=== PATIENT | female | born 1990 | race American Indian/Alaskan Native ===

== ENCOUNTER 2017-04-11 17:10 | Observation (INO) | payer MEDICAID ==
--- NOTE | 2017-04-11 17:30 | History and Physical Report ---
History of Present Illness Date of examination: 04/11/17 Date of admission: 04/11/17 17:10 Chief complaint: Patient sent from office for symptomatic anemia, plan for transfusion and consult with hematology. H&H 6.4.2 in office 03/30/17 History of present illness: EDC Calculations by LMP: 07/17/2017 Past History : 5 Term Births: 1 Premature Births: 3 Living Children: 4 Para: 4 Prev : 1 Aborta: 0 # 1 Delivery date: 10/2009 Weeks Gestation: FT Delivery type: Delivery location: [facility] Sex: Male weight: 6lbs Comments: NRFHT'S hyperemesis # 2 Delivery date: 05/2011 Weeks Gestation: 30 Delivery type: # 3 Delivery date: 03/2012 Weeks Gestation: 36 labor: yes Delivery type: weight: 9# # 4 Delivery date: 09/02/2014 Weeks Gestation: 35 labor: yes Delivery type: Hours of labor: 16 Delivery location: [facility] Sex: Male weight: 6-0 Past Medical History: no hx of sti no hx of abd pap "Diabetes, Type 2" - patient states dx at age 12, diet controlled only. ? 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 of genital herpes: no Partner hx. of genital herpes: no Genetic History Congenital Heart Defect: Mom: no Dad: no Lorraine Disease: Mom: no Dad: no Thalassemia Mom: no Dad: no Neural Tube Defect Mom: no Dad: no Down's Syndrome Mom: no Dad: no Fito-Sachs Mom: no Dad: no Sickle Cell Disease/Trait Mom: no Dad: no Hemophilia Mom: no Dad: no Muscular Dystrophy Mom: no Dad: no Cystic Fibrosis Mom: no Dad: no [place] Mom: no Dad: no Mental Retardation Mom: no Dad: no Fragile X Mom: no Dad: no Other Genetic/Chromosomal Disorder Mom: no Dad: no Child w/other defect Mom: no Dad: no Active Medications (reviewed today): FIORICET CAPSULE ([id number] CAPS) PNV () Current Allergies (reviewed today): * SHELLFISH/IODINE (Critical) Past History Past Medical History: other (see HPI) Past Surgical History: other (see HPI) - Obstetrical History Expected Date of Delivery: 07/17/17 Actual Gestation: 26 Week(s) 1 Day(s) : 5 Para: 4 Hx # Term Pregnancies: 2 Number of Pregnancies: 2 Spontaneous Abortions: 0 Induced : 0 Number of Living Children: 4 Medications and Allergies Allergies Allergy/AdvReac Type Severity Reaction Status Date / Time shellfish derived Allergy Itching Verified 09/02/14 09:34 Home Medications Medication Instructions Recorded Confirmed Last Taken Type Ferrous Sulfate [Feosol 325 MG tab] 325 mg PO TID #90 tablet 09/02/14 Unknown Rx Ibuprofen [Motrin 600 MG tab] 600 mg PO Q6H #100 tablet 09/02/14 Unknown Rx Review of Systems All systems: negative Constitutional: fatigue, weakness, other (dizzy) - Physical Exam Breasts: Positive: normal Cardiovascular: Regular rate Lungs: Positive: Clear to auscultation, Normal air movement Abdomen: Positive: normal appearance, soft Vulva: both: normal Vagina: Positive: normal moisture Uterus: Positive: normal size, normal contour Extremities: Positive: normal Deep Tendon Reflex Grade: Normal +2 - Obstetrical Uterine Contraction Monitor Mode: External Uterine Tone Measurement Phase: Resting Results All other labs normal. 03/30/17: Patient: DWAYNE OCAMPO ID: [id number] Note: All result statuses are Final unless otherwise noted. Patient Note: PATIENT NOT FASTING Tests: (1) Hemoglobin (896377) Hemoglobin [LL] 6.4 g/dL 11.1-15.9 *1 Tests: (2) Hematocrit ([id number]) Hematocrit [L] 21.2 % 34.0-46.6 *2 Assessment and Plan 27y/o @ 26 weeks admitted for severe symptomatic anemia. Patient was late to care @ 20 weeks and has had 2 visits in office to date. She was referred to [facility] for hx labor, DM type 2 and insufficient care. She was was seen yesterday by Dr. Jimenez, consult report not yet available for review. OB labs ordered along with A1C d/t DM type 2 (diet controlled per patient - not sure if she ever had this dx as she now says she had hypoglycemia with hyperglycemia only during , never used meter to monitor blood sugars). Patient also reported hx sickle cell, labs from 02/2011 reviewed negative for sickle cell trait or disease. Plan for transfusion 2 units and hematology consult (ordered.) Patient also requesting to be set up w/ zofran pump for persistent nausea and vomiting. will send case management a consult. Dr. Spencer aware of admission. - Patient Problems (1) Second trimester Current Visit: Yes Status: Acute (2) 26 weeks gestation of Current Visit: Yes Status: Acute (3) Anemia affecting in second trimester Current Visit: Yes Status: Acute Plan to address problem: transfusion x2 units Hematology consult in AM (4) Diabetes type 2, uncontrolled Current Visit: Yes Status: Acute Qualifiers: Diabetes mellitus complication status: without complication Diabetes mellitus fpc insulin use: without fpc use Qualified Code(s): E11.65 - Type 2 diabetes mellitus with hyperglycemia Plan to address problem: Patient initially reported in 2014 a dx of DM type 2 in childhood, now states she has hypoglycemia and hyperglycemia only during but states she never checked her blood sugars "I just went to the office every week" Patient does not have meter and has never used a meter to monitor blood sugars. Advised will get A1C today but that patient will need to do 1hGTT in the office. Patient states she will refuse to do 1hGTT because it makes her feel sick. (5) Nausea/vomiting in Current Visit: Yes Status: Acute Plan to address problem: Patient states she has had a zofran pump with all of her previous pregnancies She is requesting a zofran pump Will consult case management.
[2017-04-11] MEDS ORDERED: DEEP SEA NS PRN (17:31)
[2017-04-11] MEDS ORDERED: ALUM-MAG HYDROX-SIMETH 200-200-20MG/5ML PO PRN (17:31)
[2017-04-11] MEDS ORDERED: SODIUM CHLORIDE FLUSH SYRINGE 10 ML IV PRN (17:31)
[2017-04-11] MEDS ORDERED: MILK OF MAGNESIA PO PRN (17:31)
[2017-04-11] MEDS ORDERED: AMBIEN PO PRN (17:31)
[2017-04-11] MEDS ORDERED: BENADRYL PO PRN (17:31)
[2017-04-11] MEDS ORDERED: COLACE PO PRN (17:31)
[2017-04-11] MEDS ORDERED: TYLENOL PO PRN (17:31)
[2017-04-11] MEDS ORDERED: NACL 0.9% 500 ML 500 ML IV NR (17:36)
[2017-04-11] MEDS ORDERED: VISTARIL PO ONE (18:30)
--- NOTE | 2017-04-11 18:39 | Event Note ---
Date: 04/11/17 Pt here for transfusion for symptomatic anemia. Hgb in the office was about 6. Pt stated to provider she has sickle cell but all previous testing has been negative during previous . Will repeat labs at this time. It is also unclear if pt has DM as she has not really done accuchecks. HgA1C being done now. Hematology also consulted at this time as source of anemia is unknown. Plan of care d/w pt via phone prior to her admission. All questions were addressed and answered at this time.
--- NOTE | 2017-04-11 19:26 | Consultation ---
History of Present Illness - Reason for Consult Consult date: 04/11/17 anemia Requesting physician: LLOYD FUENTES - History of Present Illness thank you for this consult, record reviewed. asked to see this patient for reasons of anemia. As per her record, she is in the 2nd trimester. H/H in her doctors office low at 6, patient sent for replacement transfusion. She had claimed possibility of sickle cell dz?,and test with previous have not supported so as per her record.Will do further w/up.will follow you.She may get replacement transfusion when ever indicated. Past History Past Medical History: anemia Social history: no significant social history Medications and Allergies Allergies Allergy/AdvReac Type Severity Reaction Status Date / Time shellfish derived Allergy Itching Verified 09/02/14 09:34 Home Medications Medication Instructions Recorded Confirmed Last Taken Type Ferrous Sulfate [Feosol 325 MG tab] 325 mg PO TID #90 tablet 09/02/14 Unknown Rx Ibuprofen [Motrin 600 MG tab] 600 mg PO Q6H #100 tablet 09/02/14 Unknown Rx Active Meds: Active Medications Acetaminophen (Tylenol) 650 mg PO Q4H PRN PRN Reason: Pain MILD(1-3)/Fever >100.5/BHATT Al Hydrox/Mg Hydrox/Simethicone (Alum-Mag Hydrox-Simeth [id number]/5ml) 30 ml PO Q6H PRN PRN Reason: Indigestion Diphenhydramine HCl (Benadryl) 25 mg PO Q6H PRN PRN Reason: Itching Docusate Sodium (Colace) 100 mg PO Q12H PRN PRN Reason: Constipation Sodium Chloride (Nacl 0.9% 500 Ml) 500 mls @ 0 mls/hr IV ONCE NR PRN Reason: As Directed Stop: 04/11/17 23:59 Magnesium Hydroxide (Milk Of Magnesia) 30 ml PO QHS PRN PRN Reason: Laxative Effect Multivitamins/Iron/Calcium ( Vitamin) 1 each PO QDAY SERAFIN Ondansetron HCl (Zofran) 4 mg IV Q6H PRN PRN Reason: Nausea And Vomiting Sodium Chloride (Deep Sea) 2 spray NS Q4H PRN PRN Reason: Congestion Sodium Chloride (Sodium Chloride Flush Syringe 10 Ml) 10 ml IV PRN PRN PRN Reason: LINE FLUSH Zolpidem Tartrate (Ambien) 10 mg PO ONCE PRN PRN Reason: Sleep Review of Systems Breasts: deferred Exam - Constitutional Vitals: Temp Pulse Resp BP Pulse Ox 90 105/74 04/11/17 19:17 04/11/17 19:17 General appearance: Present: mild distress, well-nourished - EENT Eyes: Present: PERRL ENT: hearing intact, clear oral mucosa - Neck Neck: Present: supple, normal ROM - Respiratory Respiratory effort: normal Respiratory: bilateral: CTA - Cardiovascular Heart Sounds: Present: S1 & S2. Absent: rub, click - Extremities Extremities: pulses symmetrical, No edema Peripheral Pulses: within normal limits - Abdominal General gastrointestinal: Present: soft, non-tender, non-distended, normal bowel sounds Female genitourinary: Present: deferred - Rectal Rectal Exam: deferred - Integumentary Integumentary: Present: clear, warm, dry - Musculoskeletal Musculoskeletal: gait normal, strength equal bilaterally - Psychiatric Psychiatric: appropriate mood/affect, intact judgment & insight - Neurologic Neurologic: CNII-XII intact, moves all extremities Assessment and Plan - Patient Problems (1) 26 weeks gestation of Current Visit: Yes Status: Acute Plan to address problem: follow OB team (2) Anemia affecting in second trimester Current Visit: Yes Status: Acute Plan to address problem: See orders for w/up.
[2017-04-11 21:10] LABS: Hematocrit 22.9 % (30.3-42.9); Hemoglobin 7.1 gm/dl (10.1-14.3); Mean Corpuscular HGB Conc 31 % (30-34); Platelet Count 236 K/mm3 (140-440)
[2017-04-11 21:21] LABS: Mean Corpuscular Hemoglobin 20 pg (28-32); Mean Corpuscular Volume 64 fl (79-97); Red Cell Distribution Width 26.2 % (13.2-15.2)
[2017-04-11 21:31] LABS: Iron 18 ug/dL (37-170)
[2017-04-11 21:32] LABS: Total Iron Binding Capacity 423 mcg/dL (250-450)
[2017-04-11 21:37] LABS: Bilirubin,Direct < 0.2 mg/dL (0-0.2)
[2017-04-11 21:40] LABS: Rubella IgG Antibody Immune (Immune)
[2017-04-11 21:41] LABS: Hepatitis C Virus Antibody Non-Reactive (NonReactive)
[2017-04-11 22:08] LABS: Basophils % (Manual) 0 % (0.0-1.8); Eosinophils % (Manual) 0 % (0.0-4.3); Total Cells Counted 100
[2017-04-11 22:10] LABS: Anisocytosis 3+; Dimorphic RBC Yes
[2017-04-11 22:12] LABS: Ovalocytes 1+
[2017-04-11 22:13] LABS: Hypochromasia 2+; Platelet Estimate Consistent w Auto; Poikilocytosis 2+; Tear Drop Cells 1+
[2017-04-11 22:14] LABS: Target Cells Few
[2017-04-11 23:11] LABS: Amphetamine Screen,Urine PRESUMPTIVE NEGATIVE; Benzodiazepines Screen,Urine PRESUMPTIVE NEGATIVE; Cannabinoid Screen,Urine PRESUMPTIVE NEGATIVE; Cocaine Screen,Urine PRESUMPTIVE NEGATIVE; Methadone Screen,Urine PRESUMPTIVE NEGATIVE; Opiate Screen,Urine PRESUMPTIVE NEGATIVE
[2017-04-12] MEDS ORDERED: FIORICET PO PRN (00:38)
[2017-04-12] MEDS: ZOFRAN IV PRN ×2 (00:47→08:33)
[2017-04-12] MEDS ORDERED: VISTARIL PO ONE (02:00)
[2017-04-12] MEDS ORDERED: LACTATED RINGERS 1,000 ML IV SCH (05:00)
[2017-04-12 06:09] LABS: Hematocrit 24.7 % (30.3-42.9); Hemoglobin 7.4 gm/dl (10.1-14.3); Mean Corpuscular HGB Conc 30 % (30-34); Platelet Count 192 K/mm3 (140-440); Red Blood Count 3.63 M/mm3 (3.65-5.03)
[2017-04-12 06:34] LABS: Mean Corpuscular Hemoglobin 21 pg (28-32); Mean Corpuscular Volume 68 fl (79-97)
[2017-04-12] MEDS ORDERED: VISTARIL PO PRN (07:02)
--- NOTE | 2017-04-12 07:46 | Progress Note ---
Assessment and Plan Very confusing history, poor hisotorian. Will proceed with 1hgtt then allow home - Patient Problems (1) 26 weeks gestation of Current Visit: Yes Status: Acute (2) Anemia affecting in second trimester Current Visit: Yes Status: Acute Subjective - Subjective Date of service: 04/12/17 Principal diagnosis: IUP@26 2/7weeks, severe anemia Interval history: Resting in bed no complaints, +fm, no bleeding Upon further questioning she states she was diagnosed with sickle cell disease and lupus by Dr. Canela 2016, she was diagnosed with hypoglycemia not diabetes when she was 12yo. Patient reports: movement normal, no new complaints, no loss of fluid, no vaginal bleeding, no contractions Objective - Vital Signs Vital Signs: Vital Signs - 12hr 04/11/17 04/11/17 04/11/17 21:08 22:08 23:15 Temperature 97.5 F L Pulse Rate Respiratory 16 16 18 Rate Blood Pressure O2 Sat by Pulse Oximetry 04/11/17 04/11/17 04/11/17 23:16 23:29 23:34 Temperature 97.5 F L Pulse Rate 93 H 88 82 Respiratory 18 Rate Blood Pressure 119/67 O2 Sat by Pulse 98 99 Oximetry 04/11/17 04/11/17 04/11/17 23:36 23:39 23:41 Temperature 98.1 F Pulse Rate 89 89 93 H Respiratory 18 Rate Blood Pressure 105/72 105/72 O2 Sat by Pulse 98 98 Oximetry 04/11/17 04/11/17 04/11/17 23:44 23:49 23:54 Temperature Pulse Rate 97 H 97 H 100 H Respiratory Rate Blood Pressure O2 Sat by Pulse 98 97 98 Oximetry 04/11/17 04/12/17 04/12/17 23:59 00:04 00:06 Temperature 97.3 F L Pulse Rate 102 H 96 H 91 H Respiratory 18 Rate Blood Pressure 108/63 O2 Sat by Pulse 98 96 99 Oximetry 04/12/17 04/12/17 04/12/17 00:12 00:17 00:22 Temperature Pulse Rate 86 88 95 H Respiratory Rate Blood Pressure 108/63 O2 Sat by Pulse 99 99 99 Oximetry 04/12/17 04/12/17 04/12/17 00:27 00:32 00:37 Temperature Pulse Rate 97 H 90 88 Respiratory Rate Blood Pressure O2 Sat by Pulse 99 99 99 Oximetry 04/12/17 04/12/17 04/12/17 00:40 00:42 00:44 Temperature 97.4 F L Pulse Rate 97 H 104 H 97 H Respiratory 18 Rate Blood Pressure 108/65 108/65 O2 Sat by Pulse 99 Oximetry 04/12/17 04/12/17 04/12/17 00:47 00:52 00:57 Temperature Pulse Rate 99 H 90 99 H Respiratory Rate Blood Pressure O2 Sat by Pulse 100 99 99 Oximetry 04/12/17 04/12/17 04/12/17 00:59 01:00 01:02 Temperature 97.3 F L Pulse Rate 90 84 90 Respiratory 18 Rate Blood Pressure 97/54 97/54 O2 Sat by Pulse 99 Oximetry 04/12/17 04/12/17 04/12/17 01:07 01:09 01:12 Temperature Pulse Rate 94 H 92 H Respiratory 18 Rate Blood Pressure O2 Sat by Pulse 100 99 Oximetry 04/12/17 04/12/17 04/12/17 01:15 01:17 01:19 Temperature 97.1 F L Pulse Rate 87 84 87 Respiratory 18 Rate Blood Pressure 110/66 110/66 O2 Sat by Pulse 99 99 Oximetry 04/12/17 04/12/17 04/12/17 01:22 01:27 01:32 Temperature Pulse Rate 85 84 87 Respiratory Rate Blood Pressure O2 Sat by Pulse 99 99 99 Oximetry 04/12/17 04/12/17 04/12/17 01:37 01:42 01:45 Temperature 97.4 F L Pulse Rate 96 H 87 86 Respiratory 16 Rate Blood Pressure 103/58 O2 Sat by Pulse 99 99 Oximetry 04/12/17 04/12/17 04/12/17 01:50 01:55 02:00 Temperature Pulse Rate 86 95 H 86 Respiratory Rate Blood Pressure 103/58 O2 Sat by Pulse 99 100 99 Oximetry 04/12/17 04/12/17 04/12/17 02:05 02:10 02:15 Temperature 97.9 F Pulse Rate 88 90 86 Respiratory 16 Rate Blood Pressure 106/68 O2 Sat by Pulse 100 99 100 Oximetry 04/12/17 04/12/17 04/12/17 02:19 02:20 02:25 Temperature Pulse Rate 86 89 86 Respiratory Rate Blood Pressure 106/68 O2 Sat by Pulse 100 99 Oximetry 0104/12/17 04/12/17 02:30 02:35 02:40 Temperature Pulse Rate 90 87 87 Respiratory Rate Blood Pressure O2 Sat by Pulse 99 99 98 Oximetry 04/12/17 04/12/17 04/12/17 02:45 02:49 02:50 Temperature 97.1 F L Pulse Rate 88 88 86 Respiratory 16 Rate Blood Pressure 95/64 95/64 O2 Sat by Pulse 99 98 Oximetry 04/12/17 04/12/17 04/12/17 02:55 03:00 03:05 Temperature Pulse Rate 86 86 90 Respiratory Rate Blood Pressure O2 Sat by Pulse 98 99 99 Oximetry 04/12/17 04/12/17 04/12/17 03:10 03:15 03:20 Temperature 97.0 F L Pulse Rate 91 H 85 85 Respiratory 16 Rate Blood Pressure 104/51 104/51 O2 Sat by Pulse 99 98 98 Oximetry 04/12/17 04/12/17 04/12/17 03:25 03:30 03:45 Temperature 97.6 F Pulse Rate 86 84 82 Respiratory 18 Rate Blood Pressure 128/71 O2 Sat by Pulse 100 98 Oximetry 04/12/17 04/12/17 04/12/17 03:49 04:15 04:19 Temperature 97.2 F L Pulse Rate 82 88 88 Respiratory 18 Rate Blood Pressure 128/71 94/57 94/57 O2 Sat by Pulse Oximetry 04/12/17 04/12/17 04:23 04:27 Temperature 97.4 F L Pulse Rate 88 88 Respiratory 16 Rate Blood Pressure 119/78 119/78 O2 Sat by Pulse Oximetry - Exam Lungs: Normal air movement FHR: category 1 (NST, am NST (P)) - Labs Labs: Abnormal Labs 04/11/17 04/11/17 04/11/17 20:20 20:20 20:20 RBC 3.60 L Hgb 7.1 L Hct 22.9 L MCV 64 L MCH 20 L RDW 26.2 H Seg Neuts % (Manual) 74.0 H Percent Retic 2.96 H Iron Ferritin Crossmatch See Detail 04/11/17 04/11/17 04/12/17 20:20 20:20 05:44 RBC 3.63 L Hgb 7.4 L Hct 24.7 L MCV 68 L MCH 21 L RDW 29.0 H Seg Neuts % (Manual) Percent Retic Iron 18 L Ferritin 6.1 L Crossmatch Laboratory Results - last 24 hr 04/11/17 04/11/17 04/11/17 20:20 20:20 20:20 WBC 9.4 RBC 3.60 L Hgb 7.1 L Hct 22.9 L MCV 64 L MCH 20 L MCHC 31 RDW 26.2 H Plt Count 236 Add Manual Diff Complete Total Counted 100 Seg Neuts % (Manual) 74.0 H Band Neutrophils % 0 Lymphocytes % (Manual) 24.0 Reactive Lymphs % (Man) 0 Monocytes % (Manual) 2.0 Eosinophils % (Manual) 0 Basophils % (Manual) 0 Metamyelocytes % 0 Myelocytes % 0 Promyelocytes % 0 Blast Cells % 0 Nucleated RBC % Not Reportable Seg Neutrophils # Man 7.0 Band Neutrophils # 0.0 Lymphocytes # (Manual) 2.3 Abs React Lymphs (Man) 0.0 Monocytes # (Manual) 0.2 Eosinophils # (Manual) 0.0 Basophils # (Manual) 0.0 Metamyelocytes # 0.0 Myelocytes # 0.0 Promyelocytes # 0.0 Blast Cells # 0.0 WBC Morphology Not Reportable Hypersegmented Neuts Not Reportable Hyposegmented Neuts Not Reportable Hypogranular Neuts Not Reportable Smudge Cells Not Reportable Toxic Granulation Not Reportable Toxic Vacuolation Not Reportable Dohle Bodies Not Reportable Pelger-Huet Anomaly Not Reportable Gary Rods Not Reportable Platelet Estimate Consistent w auto Clumped Platelets Not Reportable Plt Clumps, EDTA Not Reportable Large Platelets Not Reportable Giant Platelets Not Reportable Platelet Satelliting Not Reportable Plt Morphology Comment Not Reportable RBC Morphology Not Reportable Dimorphic RBCs Yes Polychromasia Few Hypochromasia 2+ Poikilocytosis 2+ Anisocytosis 3+ Microcytosis 3+ Macrocytosis Not Reportable Spherocytes Not Reportable Pappenheimer Bodies Not Reportable Sickle Cells Not Reportable Target Cells Few Tear Drop Cells 1+ Ovalocytes 1+ Helmet Cells Not Reportable [place] Bodies Not Reportable [place] Rings Not Reportable Michele Cells Not Reportable Bite Cells Not Reportable Crenated Cell Not Reportable Elliptocytes Not Reportable Acanthocytes (Spur) Not Reportable Rouleaux Not Reportable Hemoglobin C Crystals Not Reportable Schistocytes Not Reportable Malaria parasites Not Reportable Percent Retic Sickle Cell Screen Negative Bj Bodies Not Reportable Hem Pathologist Commnt No Hemoglobin A1c Glucose Tolerance Iron TIBC Ferritin Total Bilirubin Direct Bilirubin Indirect Bilirubin Lactate Dehydrogenase Urine Opiates Screen Urine Methadone Screen Ur Barbiturates Screen Ur Phencyclidine Scrn Ur Amphetamines Screen U Benzodiazepines Scrn Urine Cocaine Screen U Marijuana (THC) Screen Drugs of Abuse Note Hep Bs Antigen Hepatitis C Antibody Non-reactive HIV 1&2 Antibody Rapid HIV P24 Antigen Rubella IgG Antibody Immune Blood Type O POSITIVE Antibody Screen Negative Direct Antiglob Test SERENA, Poly Interpret Crossmatch See Detail 04/11/17 04/11/17 04/11/17 20:20 20:20 20:20 WBC RBC Hgb Hct MCV MCH MCHC RDW Plt Count Add Manual Diff Total Counted Seg Neuts % (Manual) Band Neutrophils % Lymphocytes % (Manual) Reactive Lymphs % (Man) Monocytes % (Manual) Eosinophils % (Manual) Basophils % (Manual) Metamyelocytes % Myelocytes % Promyelocytes % Blast Cells % Nucleated RBC % Seg Neutrophils # Man Band Neutrophils # Lymphocytes # (Manual) Abs React Lymphs (Man) Monocytes # (Manual) Eosinophils # (Manual) Basophils # (Manual) Metamyelocytes # Myelocytes # Promyelocytes # Blast Cells # WBC Morphology Hypersegmented Neuts Hyposegmented Neuts Hypogranular Neuts Smudge Cells Toxic Granulation Toxic Vacuolation Dohle Bodies Pelger-Huet Anomaly Gary Rods Platelet Estimate Clumped Platelets Plt Clumps, EDTA Large Platelets Giant Platelets Platelet Satelliting Plt Morphology Comment RBC Morphology Dimorphic RBCs Polychromasia Hypochromasia Poikilocytosis Anisocytosis Microcytosis Macrocytosis Spherocytes Pappenheimer Bodies Sickle Cells Target Cells Tear Drop Cells Ovalocytes Helmet Cells [place] Bodies [place] Rings [place] Cells Bite Cells Crenated Cell Elliptocytes Acanthocytes (Spur) Rouleaux Hemoglobin C Crystals Schistocytes Malaria parasites Percent Retic 2.96 H Sickle Cell Screen Bj Bodies Hem Pathologist Commnt Hemoglobin A1c 5.6 Glucose Tolerance Iron TIBC Ferritin Total Bilirubin Direct Bilirubin Indirect Bilirubin Lactate Dehydrogenase Urine Opiates Screen Urine Methadone Screen Ur Barbiturates Screen Ur Phencyclidine Scrn Ur Amphetamines Screen U Benzodiazepines Scrn Urine Cocaine Screen U Marijuana (THC) Screen Drugs of Abuse Note Hep Bs Antigen Non-reactive Hepatitis C Antibody HIV 1&2 Antibody Rapid Non react HIV P24 Antigen Non react Rubella IgG Antibody Blood Type Antibody Screen Direct Antiglob Test SERENA, Poly Interpret Crossmatch 04/11/17 04/11/17 04/11/17 20:20 20:20 20:20 WBC RBC Hgb Hct MCV MCH MCHC RDW Plt Count Add Manual Diff Total Counted Seg Neuts % (Manual) Band Neutrophils % Lymphocytes % (Manual) Reactive Lymphs % (Man) Monocytes % (Manual) Eosinophils % (Manual) Basophils % (Manual) Metamyelocytes % Myelocytes % Promyelocytes % Blast Cells % Nucleated RBC % Seg Neutrophils # Man Band Neutrophils # Lymphocytes # (Manual) Abs React Lymphs (Man) Monocytes # (Manual) Eosinophils # (Manual) Basophils # (Manual) Metamyelocytes # Myelocytes # Promyelocytes # Blast Cells # WBC Morphology Hypersegmented Neuts Hyposegmented Neuts Hypogranular Neuts Smudge Cells Toxic Granulation Toxic Vacuolation Dohle Bodies Pelger-Huet Anomaly Gary Rods Platelet Estimate Clumped Platelets Plt Clumps, EDTA Large Platelets Giant Platelets Platelet Satelliting Plt Morphology Comment RBC Morphology Dimorphic RBCs Polychromasia Hypochromasia Poikilocytosis Anisocytosis Microcytosis Macrocytosis Spherocytes Pappenheimer Bodies Sickle Cells Target Cells Tear Drop Cells Ovalocytes Helmet Cells [place] Bodies [place] Rings Michele Cells Bite Cells Crenated Cell Elliptocytes Acanthocytes (Spur) Rouleaux Hemoglobin C Crystals Schistocytes Malaria parasites Percent Retic Sickle Cell Screen Bj Bodies Hem Pathologist Commnt Hemoglobin A1c Glucose Tolerance Iron 18 L TIBC 423 Ferritin 6.1 L Total Bilirubin 0.20 Direct Bilirubin < 0.2 Indirect Bilirubin 0.0 Lactate Dehydrogenase Urine Opiates Screen Urine Methadone Screen Ur Barbiturates Screen Ur Phencyclidine Scrn Ur Amphetamines Screen U Benzodiazepines Scrn Urine Cocaine Screen U Marijuana (THC) Screen Drugs of Abuse Note Hep Bs Antigen Hepatitis C Antibody HIV 1&2 Antibody Rapid HIV P24 Antigen Rubella IgG Antibody Blood Type Antibody Screen Direct Antiglob Test SERENA, Poly Interpret Crossmatch 04/11/17 04/11/17 04/11/17 20:20 20:20 21:55 WBC RBC Hgb Hct MCV MCH MCHC RDW Plt Count Add Manual Diff Total Counted Seg Neuts % (Manual) Band Neutrophils % Lymphocytes % (Manual) Reactive Lymphs % (Man) Monocytes % (Manual) Eosinophils % (Manual) Basophils % (Manual) Metamyelocytes % Myelocytes % Promyelocytes % Blast Cells % Nucleated RBC % Seg Neutrophils # Man Band Neutrophils # Lymphocytes # (Manual) Abs React Lymphs (Man) Monocytes # (Manual) Eosinophils # (Manual) Basophils # (Manual) Metamyelocytes # Myelocytes # Promyelocytes # Blast Cells # WBC Morphology Hypersegmented Neuts Hyposegmented Neuts Hypogranular Neuts Smudge Cells Toxic Granulation Toxic Vacuolation Dohle Bodies Pelger-Huet Anomaly Gary Rods Platelet Estimate Clumped Platelets Plt Clumps, EDTA Large Platelets Giant Platelets Platelet Satelliting Plt Morphology Comment RBC Morphology Dimorphic RBCs Polychromasia Hypochromasia Poikilocytosis Anisocytosis Microcytosis Macrocytosis Spherocytes Pappenheimer Bodies Sickle Cells Target Cells Tear Drop Cells Ovalocytes Helmet Cells [place] Bodies [place] Rings [place] Cells Bite Cells Crenated Cell Elliptocytes Acanthocytes (Spur) Rouleaux Hemoglobin C Crystals Schistocytes Malaria parasites Percent Retic Sickle Cell Screen Bj Bodies Hem Pathologist Commnt Hemoglobin A1c Glucose Tolerance Iron TIBC Ferritin Total Bilirubin Direct Bilirubin Indirect Bilirubin Lactate Dehydrogenase 142 Urine Opiates Screen Presumptive negative Urine Methadone Screen Presumptive negative Ur Barbiturates Screen Presumptive negative Ur Phencyclidine Scrn Presumptive negative Ur Amphetamines Screen Presumptive negative U Benzodiazepines Scrn Presumptive negative Urine Cocaine Screen Presumptive negative U Marijuana (THC) Screen Presumptive negative Drugs of Abuse Note Disclamer Hep Bs Antigen Hepatitis C Antibody HIV 1&2 Antibody Rapid HIV P24 Antigen Rubella IgG Antibody Blood Type Antibody Screen Direct Antiglob Test Negative SERENA, Poly Interpret Negative Crossmatch 04/12/17 04/12/17 05:44 06:30 WBC 9.3 RBC 3.63 L Hgb 7.4 L Hct 24.7 L MCV 68 L MCH 21 L MCHC 30 RDW 29.0 H Plt Count 192 Add Manual Diff Total Counted Seg Neuts % (Manual) Band Neutrophils % Lymphocytes % (Manual) Reactive Lymphs % (Man) Monocytes % (Manual) Eosinophils % (Manual) Basophils % (Manual) Metamyelocytes % Myelocytes % Promyelocytes % Blast Cells % Nucleated RBC % Seg Neutrophils # Man Band Neutrophils # Lymphocytes # (Manual) Abs React Lymphs (Man) Monocytes # (Manual) Eosinophils # (Manual) Basophils # (Manual) Metamyelocytes # Myelocytes # Promyelocytes # Blast Cells # WBC Morphology Hypersegmented Neuts Hyposegmented Neuts Hypogranular Neuts Smudge Cells Toxic Granulation Toxic Vacuolation Dohle Bodies Pelger-Huet Anomaly Gary Rods Platelet Estimate Clumped Platelets Plt Clumps, EDTA Large Platelets Giant Platelets Platelet Satelliting Plt Morphology Comment RBC Morphology Dimorphic RBCs Polychromasia Hypochromasia Poikilocytosis Anisocytosis Microcytosis Macrocytosis Spherocytes Pappenheimer Bodies Sickle Cells Target Cells Tear Drop Cells Ovalocytes Helmet Cells [place] Bodies [place] Rings [place] Cells Bite Cells Crenated Cell Elliptocytes Acanthocytes (Spur) Rouleaux Hemoglobin C Crystals Schistocytes Malaria parasites Percent Retic Sickle Cell Screen Bj Bodies Hem Pathologist Commnt Hemoglobin A1c Glucose Tolerance Iron TIBC Ferritin Total Bilirubin Direct Bilirubin Indirect Bilirubin Lactate Dehydrogenase Urine Opiates Screen Urine Methadone Screen Ur Barbiturates Screen Ur Phencyclidine Scrn Ur Amphetamines Screen U Benzodiazepines Scrn Urine Cocaine Screen U Marijuana (THC) Screen Drugs of Abuse Note Hep Bs Antigen Hepatitis C Antibody HIV 1&2 Antibody Rapid HIV P24 Antigen Rubella IgG Antibody Blood Type Antibody Screen Direct Antiglob Test SERENA, Poly Interpret Crossmatch
[2017-04-12 07:58] VITALS: BP 105/70
[2017-04-12] MEDS ORDERED: PRENATAL VITAMIN PO SCH (10:00)
[2017-04-12 11:07] LABS: Basophils % (Manual) 0 % (0.0-1.8); Eosinophils % (Manual) 0 % (0.0-4.3); Total Cells Counted 100
[2017-04-12 11:08] LABS: Anisocytosis 3+; Hypochromasia 2+
[2017-04-12 11:09] LABS: Poikilocytosis Few
[2017-04-19 13:14] LABS: ANA Screen, IFA Negative (Negative)
== END 2017-04-12 13:00 | disposition home or self-care (01) ==
LOC: LD 17:10
PROVIDERS: ADMIT Obstetrics & Gynecology; ATTEND Obstetrics & Gynecology
DX: O99.012 Anemia complicating pregnancy, second trimester (principal); O21.2 Late vomiting of pregnancy; O24.112 Pre-existing type 2 diabetes mellitus, in pregnancy, second trimester; Z3A.26 26 weeks gestation of pregnancy
CPT/HCPCS: 36415; 36430; 80307; 82010; 82232; 82248; 82728; 82951; 83036; 83550; 83615; 85007; 85025; 85045; 85613; 85660; 86038; 86592; 86706; 86762; 86803; 86850; 86880; 86900; 86901; 86920; 87086; 87806; 96361; 96374; 96376; G0378; G0379; J2405; J7040; J7120; P9016; Q0177

== ENCOUNTER 2017-04-17 17:04 | Outpatient (CLI) | payer MEDICAID ==
[2017-04-17] MEDS ORDERED: LACTATED RINGERS 500 ML IV ONE (17:26)
[2017-04-17 20:06] VITALS: BP 107/76
== END 2017-04-17 20:25 | disposition home or self-care (01) ==
LOC: TRG 17:04
PROVIDERS: ATTEND Obstetrics & Gynecology
DX: Z34.93 Encounter for supervision of normal pregnancy, unspecified, third trimester (principal); Z3A.27 27 weeks gestation of pregnancy
CPT/HCPCS: 59025; 96360; J7120

== ENCOUNTER 2017-04-30 21:37 | Inpatient (IN) | payer MEDICAID ==
[2017-04-30] MEDS ORDERED: LACTATED RINGERS 1,000 ML ONE (21:44)
[2017-04-30] MEDS ORDERED: LACTATED RINGERS 500 ML IV ONE (21:49)
[2017-04-30] MEDS ORDERED: MAGNESIUM SULFATE 4GM/100ML 4 GM/100 ML BAG IV ONE (21:59)
[2017-04-30] MEDS ORDERED: REGLAN IV ONE (22:01)
[2017-04-30] MEDS ORDERED: BICITRA PO ONE (22:01)
[2017-04-30] MEDS ORDERED: PEPCID IV ONE (22:03)
[2017-04-30] MEDS ORDERED: ANCEF/STERILE WATER 2 GM/20 ML IV NR (22:15)
[2017-04-30 22:18] LABS: Hemoglobin 10.1 gm/dl (10.1-14.3); Mean Corpuscular HGB Conc 31 % (30-34); Mean Corpuscular Volume 73 fl (79-97); Platelet Count 187 K/mm3 (140-440); Red Blood Count 4.54 M/mm3 (3.65-5.03)
[2017-04-30 22:22] LABS: Mean Corpuscular Hemoglobin 22 pg (28-32); Red Cell Distribution Width 31.6 % (13.2-15.2)
--- NOTE | 2017-04-30 22:25 | History and Physical Report ---
History of Present Illness Date of examination: 04/30/17 Date of admission: 04/30/17 21:37 Chief complaint: presents in active labor History of present illness: Pt presents c/o contractions. Cx 10/100/0 with bulging bag of water. EGA 28 6/ 7. Will admit for delivery. Pt is s/p c/s x1 and x 3 EDC Confirmation: 07/17/2017 Gestational Age: 20 3/7 weeks Past History : 5 Term Births: 1 Premature Births: 3 Living Children: 4 Para: 4 Prev : 1 Aborta: 0 # 1 Delivery date: 10/2009 Weeks Gestation: FT Delivery type: Delivery location: [facility] Infant Sex: Male weight: 6lbs Comments: NRFHT'S hyperemesis # 2 Delivery date: 05/2011 Weeks Gestation: 30 Delivery type: # 3 Delivery date: 03/2012 Weeks Gestation: 36 labor: yes Delivery type: weight: 9# # 4 Delivery date: 09/02/2014 Weeks Gestation: 35 labor: yes Delivery type: Hours of labor: 16 Delivery location: [facility] Sex: Male weight: 6-0 Past Medical History: no hx of sti no hx of abd pap "Diabetes, Type 2" - patient states dx at age 12, diet controlled only. ? 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 of genital herpes: no Partner hx. of genital herpes: no Genetic History Congenital Heart Defect: Mom: no Dad: no Lorraine Disease: Mom: no Dad: no Thalassemia Mom: no Dad: no Neural Tube Defect Mom: no Dad: no Down's Syndrome Mom: no Dad: no Fito-Sachs Mom: no Dad: no Sickle Cell Disease/Trait Mom: no Dad: no Hemophilia Mom: no Dad: no Muscular Dystrophy Mom: no Dad: no Cystic Fibrosis Mom: no Dad: no [place] Chorea Mom: no Dad: no Mental Retardation Mom: no Dad: no Fragile X Mom: no Dad: no Other Genetic/Chromosomal Disorder Mom: no Dad: no Child w/other defect Mom: no Dad: no Active Medications (reviewed today): FIORICET CAPSULE ([id number] [id number]) PNV () Current Allergies (reviewed today): * SHELLFISH/IODINE (Critical) Past History Past Medical History: no pertinent history Past Surgical History: section - Obstetrical History Expected Date of Delivery: 07/17/17 Actual Gestation: 28 Week(s) 6 Day(s) : 5 Para: 4 Hx # Term Pregnancies: 1 Number of Pregnancies: 2 Number of Living Children: 4 Medications and Allergies Allergies Allergy/AdvReac Type Severity Reaction Status Date / Time iodine Allergy Itching Verified 04/30/17 22:22 shellfish derived Allergy Itching Verified 09/02/14 09:34 Home Medications Medication Instructions Recorded Confirmed Last Taken Type Ferrous Sulfate [Feosol 325 MG tab] 325 mg PO TID #90 tablet 09/02/14 Unknown Rx Ibuprofen [Motrin 600 MG tab] 600 mg PO Q6H #100 tablet 09/02/14 Unknown Rx Docusate Sodium [Colace] 100 mg PO BID PRN #30 capsule 04/12/17 Unknown Rx Ferrous Sulfate [Feosol 325 MG tab] 325 mg PO BID #90 tablet 04/12/17 Unknown Rx Omeprazole 20 mg PO DAILY #30 tablet. 04/12/17 Unknown Rx Ondansetron [Zofran ODT TAB] 8 mg PO Q12HR #15 tab.rapdis 04/12/17 Unknown Rx Docusate Sodium [Colace] 100 mg PO BID PRN #30 capsule 04/30/17 Unknown Rx Ferrous Sulfate 325 mg PO BID #60 tablet.dr 04/30/17 Unknown Rx Ibuprofen 800 mg PO Q6HR #30 tablet 04/30/17 Unknown Rx oxyCODONE /ACETAMINOPHEN [Percocet 1 tab PO Q4HR #30 tab 04/30/17 Unknown Rx 5/325] Active Meds: Active Medications Lactated Ringer's (Lactated Ringers) 500 mls @ 999 mls/hr IV BOLUS ONE Stop: 04/30/17 22:19 Lactated Ringer's (Lactated Ringers) 1,000 mls @ 999 mls/hr IV DIRECT SERAFIN Oxytocin/Sodium Chloride (Pitocin/Ns 20 Unit/1000ml Drip) 20 units in 1,000 mls @ 0 mls/hr IV DIRECT SERAFIN PRN Reason: As Directed - Physical Exam Cardiovascular: Normal S1, Normal S2 Lungs: Positive: Clear to auscultation, Normal air movement Abdomen: Positive: normal appearance, soft. Negative: distention, tenderness, guarding Genitourinary (Female): Positive: normal external genitalia, normal perenium - Obstetrical FHR: category 1 Cervical Dilatation: 10 (BBOW) Cervical Effacement Percentage: 100 station: 0 Results All other labs normal. Assessment and Plan - Patient Problems (1) 28 weeks gestation of Current Visit: Yes Status: Acute (2) labor Current Visit: Yes Status: Acute Qualifiers: labor trimester: third trimester Fetus number: single or unspecified fetus Plan to address problem: -to OR for repeat c/s -consents signed and placed on the chart. (3) Previous delivery affecting Current Visit: Yes Status: Acute (4) Anemia affecting in third trimester Current Visit: Yes Status: Acute
--- NOTE | 2017-04-30 22:25 | Anesthesia Consultation ---
Anesthesia Consult and Med Hx Date of service: 04/30/17 - Airway Anesthetic Teeth Evaluation: Good ROM Head & Neck: Adequate Mental/Hyoid Distance: Adequate Mallampati Class: Class II Intubation Access Assessment: Good - Pulmonary Exam CTA: Yes - Cardiac Exam Cardiac Exam: RRR - Pre-Operative Health Status ASA Pre-Surgery Classification: ASA2 Proposed Anesthetic Plan: Spinal - Pre-Anesthesia Comment Pre-Anesthesia Comments: 27y F, c/s with 3 vbacs now presenting in labor for repeat c/s - Pulmonary Hx Smoking: No Hx Asthma: Yes (last attack before ) COPD: No Hx Pneumonia: No - Cardiovascular System Hx Hypertension: No - Central Nervous System Hx Seizures: No Hx Psychiatric Problems: No - Endocrine Hx Renal Disease: No Hx End Stage Renal Disease: No Hx Liver Disease: No Hx Insulin Dependent Diabetes: No Hx Non-Insulin Dependent Diabetes: No Hx Hypothyroidism: No Hx Hyperthyroidism: No - Hematic Hx Anemia: Yes (TAKES IRON "OFF AND ON") Hx Sickle Cell Disease: No - Other Systems Hx Alcohol Use: No
--- NOTE | 2017-04-30 22:26 | Anesthesia Day of Surgery ---
Anesthesia Day of Surgery - Day of Surgery Patient Examined: Yes Patient H&P Reviewed: Yes Patient is NPO: Yes (last food at 1200 on 04/30/17) Beta Blockers: No Cardiac Clearance: Yes Pulmonary Clearance: Yes Javid's Test: N/A
[2017-04-30] MEDS ORDERED: ASTRAMORPH PF 10MG/10ML ONE (22:29)
[2017-04-30] MEDS ORDERED: TORADOL ONE (22:30)
[2017-04-30] MEDS ORDERED: BENADRYL ONE (22:30)
[2017-04-30] MEDS ORDERED: NEO SYNEPHRINE/NS Syringe(OR USE) IV ONE (22:31)
--- NOTE | 2017-04-30 22:38 | Ultrasound Report ---
FINAL REPORT PROCEDURE: US OB LIMITED TECHNIQUE: Real-time limited sonographic examination was performed for evaluation of presentation. CPT 65631 History Presentation. In labor. COMPARISON: No prior studies are available for comparison. FINDINGS: FETUS IUP: Single living intrauterine . Position: Cephalic. Placental position: Posterior lateral grade 1, without previa . Heart rate and rhythm: 132 BPM, Regular . IMPRESSION: Single live intrauterine gestation in cephalic presentation. Limited evaluation.
[2017-04-30] MEDS ORDERED: WATER FOR IRRIG STERILE IR ONE (22:45)
[2017-04-30] MEDS ORDERED: NACL 0.9% IR ONE (22:45)
[2017-04-30] MEDS ORDERED: LACTATED RINGERS 1,000 ML IV SCH (23:00)
[2017-04-30] MEDS ORDERED: PITOCin/NS 20 UNIT/1000ML DRIP 20 UNITS/1,000 ML BAG IV SCH (23:00)
[2017-04-30] MEDS ORDERED: SUBLIMAZE ONE (23:32)
--- NOTE | 2017-04-30 23:57 | History and Physical Report ---
History of Present Illness Date of admission: 04/30/17 21:37 Past History Past Medical History: no pertinent history Past Surgical History: section - Obstetrical History Expected Date of Delivery: 05/24/17 Actual Gestation: 36 Week(s) 4 Day(s) : 5 Medications and Allergies Allergies Allergy/AdvReac Type Severity Reaction Status Date / Time iodine Allergy Itching Verified 04/30/17 22:22 shellfish derived Allergy Itching Verified 09/02/14 09:34 Home Medications Medication Instructions Recorded Confirmed Last Taken Type Ferrous Sulfate [Feosol 325 MG tab] 325 mg PO TID #90 tablet 09/02/14 Unknown Rx Ibuprofen [Motrin 600 MG tab] 600 mg PO Q6H #100 tablet 09/02/14 Unknown Rx Docusate Sodium [Colace] 100 mg PO BID PRN #30 capsule 04/12/17 Unknown Rx Ferrous Sulfate [Feosol 325 MG tab] 325 mg PO BID #90 tablet 04/12/17 Unknown Rx Omeprazole 20 mg PO DAILY #30 tablet. 04/12/17 Unknown Rx Ondansetron [Zofran ODT TAB] 8 mg PO Q12HR #15 tab.rapdis 04/12/17 Unknown Rx Docusate Sodium [Colace] 100 mg PO BID PRN #30 capsule 04/30/17 Unknown Rx Ferrous Sulfate 325 mg PO BID #60 tablet. 04/30/17 Unknown Rx Ibuprofen 800 mg PO Q6HR #30 tablet 04/30/17 Unknown Rx oxyCODONE /ACETAMINOPHEN [Percocet 1 tab PO Q4HR #30 tab 04/30/17 Unknown Rx 5/325] Active Meds: Active Medications Lactated Ringer's (Lactated Ringers) 1,000 mls @ 999 mls/hr IV DIRECT SERAFIN Oxytocin/Sodium Chloride (Pitocin/Ns 20 Unit/1000ml Drip) 20 units in 1,000 mls @ 0 mls/hr IV DIRECT SERAFIN PRN Reason: As Directed Results Result Diagrams: 04/30/17 21:40 Abnormal lab results 04/30/17 Range/Units 21:40 MCV 73 L (79-97) fl MCH 22 L (28-32) pg RDW 31.6 H (13.2-15.2) % All other labs normal. Assessment and Plan - Patient Problems (1) 28 weeks gestation of Current Visit: Yes Status: Acute (2) labor Current Visit: Yes Status: Acute Qualifiers: labor trimester: third trimester Fetus number: single or unspecified fetus (3) Previous delivery affecting Current Visit: Yes Status: Acute (4) Anemia affecting in third trimester Current Visit: Yes Status: Acute
--- NOTE | 2017-04-30 23:58 | Operative Report ---
Operative Report Operative Report: Date of procedure: 04/30/2017 Pre-operative diagnosis: IUP at 36-5/7 weeks gestation labor Desires permanent sterilization Previous section 1 Post-operative diagnosis: Same Procedure name(s): Repeat low transverse section via Pfannenstiel skin incision Bilateral tubal ligation via modified [place] method Surgeon: Dr. Molina Criminal Investigator: Certified surgical scrub assistant reading teacher Anesthesia: Combined spinal epidural Anesthesiologist: Dr. austin EBL: 750 mL Urine output: 100 mL of initially slightly blood-tinged tinged urine clearing at the end of the procedure. Fluids: 1800 mL Findings: Liveborn female infant Apgars of 8 and 8 at one and 5 minutes. Grossly normal fallopian tubes and ovaries bilaterally. Indications: Patient presents completely dilated 100% effaced and 0 station with bulging bag of water. Patient desired repeat section with bilateral tubal ligation. All risks benefits and alternatives were discussed with the patient consents were signed and placed on the chart. Procedure: Patient was taking to the operating room. Patient was then prepped and draped in sterile fashion after anesthesia was found to be adequate. A low transverse skin incision was made with the scalpel through previous incisional scar and carried down to the underlying layer of fascia with the Bovie. The fascia was then incised in the midline and this incision was extended bilaterally with the Bovie. The superior aspect of the fascia was grasped with Raman clamps tented upward and dissected off of the anterior rectus muscles with the scalpel. In similar fashion the inferior aspect of the fascia was grasped with Raman clamps tented upward and dissected off of the anterior rectus muscles. The rectus muscles were then bluntly divided in the midline. The peritoneum was identified and entered into sharply. The bladder blade was replaced. A lower transverse uterine incision was made with the scalpel and extended bilaterally with blunt dissection. Artificial rupture of membranes was performed yielding clear amniotic fluid. The 's head was then delivered atraumatically. The anterior shoulder and rest of infant delivered without difficulty. The umbilical cord was clamped x2 with delayed clamping of cord. The cord was cut. The infant was then placed in sterile bassinet. The cord blood was collected. The placenta was manually extracted in its entirety. The uterus was exteriorized and cleared of all clots and debris. The uterine incision was closed using 0 Vicryl in a running locking fashion. Of 8 sutures were used along the uterine incision to secure excellent hemostasis. Tisseel was placed along the uterine incision excellent hemostasis was noted. Attention was then turned to the fallopian tubes. A knuckle of tube was grasp with the Raffi clamp and suture ligated and transected. This was done bilaterally. Uterus was returned to the abdomen The posterior cul-de- sac was copiously irrigated. The uterus was returned to the abdomen. The gutters were also irrigated. The anterior rectus muscles were reapproximated using 3-0 Vicryl. The anterior rectus fascia was reapproximated using 0 Vicryl in a running fashion. The subcuticular fat was reapproximated using 2-0 Vicryl in a running fashion. The skin was reapproximated with 4-0 Monocryl with a subcuticular stitch. The patient tolerated the procedure well. Sponge lap and needle counts were all correct x3. Patient was taken to the recovery room awake and in stable condition.
[2017-05-01] MEDS ORDERED: NARCAN 0.4 MG/1 ML IV PRN ×2 (00:19→00:22)
[2017-05-01] MEDS ORDERED: DILAUDID IV PRN (00:19)
[2017-05-01] MEDS ORDERED: NUBAIN IV PRN (00:19)
[2017-05-01] MEDS ORDERED: ZOFRAN IV PRN (00:19)
[2017-05-01] MEDS ORDERED: LANSINOH TP PRN (00:22)
[2017-05-01] MEDS ORDERED: TUCKS PAD TP PRN (00:22)
--- NOTE | 2017-05-01 00:29 | Post Anesthesia Evaluation ---
- Post Anesthesia Evaluation Patient Participated: Yes Airway Patent: Yes Stable Respiratory Function: Yes Nausea/Vomiting: No Temp > 96.8F: Yes Pain Manageable: Yes (Pt sleeping) Adequeate Hydration: Yes Anesthesia Complications: No Block Receding Appropriately: Yes Patient on Ventilator: No
[2017-05-01] MEDS ORDERED: ANCEF/NS 1 GM/50 ML 1 GM/50 ML BAG IV SCH (01:00)
[2017-05-01] MEDS ORDERED: SODIUM CHLORIDE FLUSH SYRINGE 10 ML IV PRN (01:00)
[2017-05-01] MEDS: TORADOL IV PRN ×3 (02:42→21:04)
[2017-05-01] MEDS: LACTATED RINGERS 1,000 ML IV SCH ×2 (03:20→11:15)
[2017-05-01] MEDS: ceFAZolin 1 GM in NACL 0.9% 20 ML IV SCH ×2 (05:43→14:55)
[2017-05-01] MEDS ORDERED: BENADRYL IV ONE (06:16)
--- NOTE | 2017-05-01 06:41 | Progress Note ---
Assessment and Plan - Patient Problems (1) delivery delivered Onset Date: ~04/30/17 Current Visit: Yes Status: Acute Plan to address problem: pt A&O X 3 Only voiced c/o itching Benadryl ordered. VSS FF below umb Lochia small Dressing D&I H&H pending Doing well s/p repeat c/s P: continue pathway Adv as tolerated. Subjective - Subjective Date of service: 05/01/17 (pt c/o itching; Benadryl ordered) Principal diagnosis: Day # 1 (7 hours) s/p section Patient reports: voiding normally (bunch draining to BSB) : doing well Objective - Vital Signs Latest vital signs: Vital Signs Temp Pulse Resp BP BP Pulse Ox 05/01/17 04:26 98.6 F 83 20 100/61 05/01/17 01:05 97.8 F 77 18 111/76 05/01/17 01:02 97.4 F L 05/01/17 00:55 78 11 L 104/71 97 05/01/17 00:51 13 05/01/17 00:40 83 10 L 105/77 96 05/01/17 00:32 97.0 F L 05/01/17 00:25 80 8 L 103/75 96 05/01/17 00:10 87 11 L 101/68 95 05/01/17 00:06 86 15 97/64 99 05/01/17 00:00 94 H 14 104/74 95 04/30/17 23:55 89 17 104/74 100 04/30/17 23:53 96.4 F L 13 99 04/30/17 21:49 98.2 F Intake and Output 04/30/17 04/30/17 05/01/17 14:59 22:59 06:59 Intake Total 2300 Output Total 200 Balance 2100 Intake: IV 2300 Output: Urine 200 Other: Weight 150 lb Estimated Blood Loss 750 Patient Weight 05/01/17 06:59 Weight 150 lb - Exam Breasts: Present: normal Cardiovascular: Present: Regular rate Lungs: Present: Clear to auscultation Abdomen: Present: normal appearance, soft Uterus: Present: normal Extremities: Present: normal Deep Tendon Reflex Grade: Normal +2 Incision: Present: normal, dry, intact, dressed - Labs Labs: Abnormal lab results 04/30/17 Range/Units 21:40 MCV 73 L (79-97) fl MCH 22 L (28-32) pg RDW 31.6 H (13.2-15.2) %
--- NOTE | 2017-05-01 10:49 | Progress Note ---
Subjective Date of service: 05/01/17 Principal diagnosis: Day # 1 (7 hours) s/p section Interval history: 1st POD after Patient is in the bed, comfortable. Pain is well controlled with pain meds. Has not ambulated yet. No residual neurological deficit. No anesthesia complications Objective - Constitutional Vitals: Vital Signs - 12hr 04/30/17 04/30/17 05/01/17 23:53 23:55 00:00 Temperature 96.4 F L Pulse Rate 89 94 H Respiratory 13 17 14 Rate Blood Pressure 104/74 104/74 Blood Pressure [Left] O2 Sat by Pulse 99 100 95 Oximetry 05/01/17 05/01/17 05/01/17 00:06 00:10 00:25 Temperature Pulse Rate 86 87 80 Respiratory 15 11 L 8 L Rate Blood Pressure 97/64 101/68 103/75 Blood Pressure [Left] O2 Sat by Pulse 99 95 96 Oximetry 05/01/17 05/01/17 05/01/17 00:32 00:40 00:51 Temperature 97.0 F L Pulse Rate 83 Respiratory 10 L 13 Rate Blood Pressure 105/77 Blood Pressure [Left] O2 Sat by Pulse 96 Oximetry 05/01/17 05/01/17 05/01/17 00:55 01:02 01:05 Temperature 97.4 F L 97.8 F Pulse Rate 78 77 Respiratory 11 L 18 Rate Blood Pressure 104/71 Blood Pressure 111/76 [Left] O2 Sat by Pulse 97 Oximetry 05/01/17 05/01/17 04:26 09:24 Temperature 98.6 F 98.5 F Pulse Rate 83 84 Respiratory 20 18 Rate Blood Pressure Blood Pressure 100/61 111/82 [Left] O2 Sat by Pulse Oximetry - Labs CBC & Chem 7: 04/30/17 21:40 Labs: Abnormal lab results 04/30/17 Range/Units 21:40 MCV 73 L (79-97) fl MCH 22 L (28-32) pg RDW 31.6 H (13.2-15.2) %
[2017-05-01] MEDS: FEOSOL PO SCH (11:15)
[2017-05-01 12:18] LABS: Hematocrit 26.8 % (30.3-42.9); Hemoglobin 8.3 gm/dl (10.1-14.3)
[2017-05-01] MEDS: MOTRIN PO PRN (17:09)
[2017-05-01] MEDS: BENADRYL PO PRN (17:09)
[2017-05-02] MEDS: NORCO 5/325 PO PRN ×3 (05:14→19:39)
[2017-05-02] MEDS: MOTRIN PO PRN ×2 (05:14→11:50)
[2017-05-02] MEDS: BENADRYL PO PRN ×2 (05:15→19:45)
[2017-05-02] MEDS ORDERED: BOOSTRIX IM ONE (06:00)
--- NOTE | 2017-05-02 08:10 | Discharge Summary ---
Providers - Providers Date of Admission: 04/30/17 21:37 Date of discharge: 05/02/17 (desires d/c home) Attending physician: LLOYD FUENTES Primary care physician: LLOYD FUENTES Hospitalization Reason for admission: active labor, previous c/s Condition: Good Procedures: repeat c/s with tubal ligation Hospital course: uncomplicated c/s delivery with BTL and pathway Disposition: DC-01 TO HOME OR SELFCARE - Discharge Diagnoses (1) delivery delivered Status: Acute Core Measure Documentation - Palliative Care Palliative Care/ Comfort Measures: Not Applicable - Core Measures Any of the following diagnoses?: none Exam - Constitutional Vitals: Temp Pulse Resp BP Pulse Ox 97.8 F 94 H 20 103/62 98 05/02/17 00:49 05/02/17 00:49 05/02/17 00:49 05/02/17 00:49 05/02/17 00:49 General appearance: Present: no acute distress, well-nourished - EENT Eyes: Present: PERRL ENT: hearing intact, clear oral mucosa - Neck Neck: Present: supple, normal ROM - Respiratory Respiratory effort: normal Respiratory: bilateral: CTA - Cardiovascular Heart Sounds: Present: S1 & S2. Absent: rub, click - Extremities Extremities: pulses symmetrical, No edema Peripheral Pulses: within normal limits - Abdominal General gastrointestinal: Present: soft, non-tender, non-distended, normal bowel sounds Female genitourinary: Present: normal - Integumentary Integumentary: Present: clear, warm, dry - Musculoskeletal Musculoskeletal: gait normal, strength equal bilaterally - Psychiatric Psychiatric: appropriate mood/affect, intact judgment & insight - Neurologic Neurologic: CNII-XII intact, moves all extremities Plan Activity: advance as tolerated Diet: regular Wound: open to air, keep clean and dry Special Instructions: no heavy lifting Follow up with: LLOYD FUENTES MD [Primary Care Provider] - 7 Days (Congratulations! Please call [phone] to schedule your incision check in 1 week. Call for any questions or concerns. ) Prescriptions: Docusate Sodium [Colace] 100 mg PO BID PRN #30 capsule PRN Reason: Constipation Ferrous Sulfate 325 mg PO BID #60 tablet. Ibuprofen 800 mg PO Q6HR #30 tablet oxyCODONE /ACETAMINOPHEN [Percocet 5/325] 1 tab PO Q4HR #30 tab
[2017-05-02] MEDS ORDERED: NUBAIN IV NR (09:00)
[2017-05-02] MEDS: PERCOCET 5/325 PO PRN (19:39)
[2017-05-03] MEDS: PERCOCET 5/325 PO PRN ×2 (00:03→04:58)
[2017-05-03] MEDS: MOTRIN PO PRN ×2 (00:04→09:35)
[2017-05-03] MEDS: BENADRYL PO PRN (04:58)
[2017-05-03] MEDS: FEOSOL PO SCH ×2 (09:34→10:05)
[2017-05-03] MEDS: NORCO 5/325 PO PRN (09:35)
[2017-05-03 13:04] VITALS: BP 118/79
== END 2017-05-03 13:15 | disposition home or self-care (01) | DRG 765 ==
LOC: APU 21:37 → OB 05-01 01:35
PROVIDERS: ADMIT Obstetrics & Gynecology; ATTEND Obstetrics & Gynecology
PROC: 10D00Z1 Extraction of Products of Conception, Low, Open Approach (ICD-10-PCS; principal; 2017-04-30)
PROC: 0UL70ZZ Occlusion of Bilateral Fallopian Tubes, Open Approach (ICD-10-PCS; 2017-04-30)
PROC: 3E0234Z Introduction of Serum, Toxoid and Vaccine into Muscle, Percutaneous Approach (ICD-10-PCS; 2017-04-30)
DX: O34.219 Maternal care for unspecified type scar from previous cesarean delivery (principal); O60.14X0 Preterm labor third trimester with preterm delivery third trimester, not applicable or unspecified; O99.02 Anemia complicating childbirth; D64.9 Anemia, unspecified; Z3A.36 36 weeks gestation of pregnancy; Z37.0 Single live birth; Z23 Encounter for immunization; Z91.041 Radiographic dye allergy status; Z91.040 Latex allergy status; Z30.2 Encounter for sterilization
CPT/HCPCS: 36415; 76815; 85014; 85018; 85027; 86592; 86850; 86900; 86901; 88302; 88307; 99211; A6250; C9250; G0463; J0690; J1170; J1200; J1885; J2274; J2300; J2370; J2590; J3010; J3475; J7120